=== PATIENT | male | born 1960 | race Caucasian/White ===

== ENCOUNTER 2016-07-14 07:54 | Emergency (ER) | payer SELFPAY ==
--- NOTE | ~2016-07-14 | ER ---
PATIENT'S NAME: BOWEN HAYNES [facility] AGE: 56 Y [address] ROOM: [place] [id number] LOCATION: ED ADMIT DATE: 07/14/2016 ER/Outpatient Report DISCHARGE DATE: 07/14/2016 FAMILY PHYSICIAN: Eliezer Sosa MD ATTENDING PHYSICIAN: Shaq Gamboa Time of arrival: 0754 hours. Time of evaluation: 0754 hours. CHIEF COMPLAINT: Chest pain. HISTORY OF PRESENT ILLNESS: The patient is a 56-year-old male, who presents for emergency department today with chief complaint of chest pain. Reports the left mid-upper chest it is a burning sensation that has been off and on for several months now. He reports no pain currently. Denies any nausea or vomiting. Does have some occasional shortness of breath. He was recently diagnosed with pneumonia. Denies any current diaphoresis. Denies any diarrhea or constipation. No fevers or chills. The patient reports that he just applied for jobs that does require lifting, so he has become concerned that he does not want to fall over from heart attack, if he notes to do lifting. PAST MEDICAL HISTORY: 1. Hypertension. 2. Seizures. 3. Depression. PAST SURGICAL HISTORY: Cervical tonsils and adenoids. SOCIAL HISTORY: The patient smokes a pack per day for 37 weeks. He is attempting to cut back alcohol. Reports social alcohol use. Denies any illicit drug use. ALLERGIES: NO KNOWN DRUG ALLERGIES. MEDICATIONS: Please see list. REVIEW OF SYSTEMS: All systems are reviewed by myself and are negative with the exception of those discussed in HPI and past medical history. PATIENT'S NAME: BOWEN HAYNES [facility] AGE: 56 Y [address] ROOM: [place], [place] [address] LOCATION: ED ADMIT DATE: 07/14/2016 ER/Outpatient Report DISCHARGE DATE: 07/14/2016 FAMILY PHYSICIAN: Eliezer Sosa MD ATTENDING PHYSICIAN: Shaq Gamboa PHYSICAL EXAMINATION: VITAL SIGNS: Weight 101.4 kg, blood pressure is 175/120, pulse 88, respiratory rate 16, temperature 98.5, oxygen saturation 98% on room air. GENERAL: The patient is a 56-year-old male, who appears stated age, in no acute distress. Well developed and well nourished. HEENT: Normocephalic and atraumatic. Pupils are equal, round, and reactive to light. NECK: Supple. There is no nuchal rigidity. CARDIOVASCULAR: Regular rate and rhythm. No murmurs, rubs, or gallops. LUNGS: Diminished diffusely and bilaterally. No wheezes, rales, or rhonchi. ABDOMEN: Soft, nontender, and nondistended. No rebound, rigidity, or guarding. MUSCULOSKELETAL: The patient moves all 4 extremities. SKIN: Warm and dry. There is no rashes or lesions noted. LABORATORY DATA AND X-RAYS: EKG is obtained that is interpreted by myself at 0812 hours. Shows sinus rhythm with a rate of 73 normal axis. Normal interval. No ST-elevation, ST- depression, T-wave inversion. CBC is unremarkable. CMP is unremarkable. Coags are normal. Alcohol is less than 0.01. Cardiac enzymes are normal. ProBNP is normal. D-dimer is normal. Chest x-ray shows no acute process. Repeat 2-hour cardiac enzymes are normal. Repeat 2-hour EKG at 0933 hours is interpreted by myself shows sinus rhythm with a rate of 68, normal axis, normal interval. No ST elevation, ST depression, T-wave inversions. There is no significant change from EKG dated 08/10/2014. IMPRESSION: 1. Chest pain, unclear etiology. 2. Tobacco abuse. 3. Initial visit. EMERGENCY DEPARTMENT COURSE: The patient brought back to the examination room. Seen and evaluated by myself. IV is established. Laboratory analysis and imaging are obtained described above. I have discussed results with the patient. The patient was given a liter of normal saline IV, 4 baby aspirin, 1 sublingual nitroglycerin, and a GI cocktail. I have discussed results of the laboratory analysis and imaging with the patient. Cardiac enzymes are negative. The patient's HEART score is 2, which does report a 2.5% risk of adverse cardiac event. I am recommending the patient to be discharged home with followup. I have discussed with the patient that I would recommend following up with Dr. Sosa's in 2 days for re-evaluation. I am discussing with Dr. Sosa potential for stress test and endoscopy. I have discussed return to care instructions including worsening chest pain, diaphoresis, or any other concerns to return to the emergency department as soon as possible. The PATIENT'S NAME: BOWEN HAYNES [facility] AGE: 56 Y [address] ROOM: [place] [id number] LOCATION: [facility] ADMIT DATE: 07/14/2016 ER/Outpatient Report DISCHARGE DATE: 07/14/2016 FAMILY PHYSICIAN: Eliezer Sosa MD ATTENDING PHYSICIAN: Shaq Gamboa patient is agreeable without further questions at this time. DISPOSITION: The patient is discharged home in good condition. DO ZAHRA ESCALANTE/joão /[id number] d: 07/14/16 1522 t: 07/19/16 0843, OUTPATIENT REPORT
[~2016-07-14 07:54] MED LIST: ASPIRIN325 MG PO; AVAPRO300 MG PO; CHANTIX1 EACH PO; COMBIVENT RESPIM4 GM INH; COREG12.5 M1 PO; DELTASONE10 MG PO; FOLIC ACID 40400 MCG PO; GUIATUSS AC (D480 ML PO; KEPPRA500 M1 PO; NORVASC5 MG PO; OXYGEN INH; PREDNISONE10 MG PO; PRILOSEC40 MG PO; TESSALON PERLE100 MG PO; TUMS REGULAR ST1 TAB PO; TYLENOL325 MG PO; ZITHROMAX250 MG PO; ZOCOR40 MG PO
[2016-07-14 08:25] LABS: BASOPHIL # 0.1 K/uL (0.0-0.2); BASOPHIL % 1.3 %; EOSINOPHIL # 0.1 K/uL (0.0-0.5); HEMATOCRIT 51.1 % (37.0-53.0); HEMOGLOBIN 17.6 g/dL (12.0-17.0); IMMATURE GRANULOCYTE % 0.1 %; LYMPHOCYTE # 2.3 K/uL (0.8-4.0); LYMPHOCYTE % 32.8 %; MCH 30.3 pg (27.0-34.0); MCHC 34.4 gm/dL (32.0-36.5); MCV 88.1 fl (83.0-98.0); MONOCYTE # 0.6 K/uL (0.0-1.0); MONOCYTE % 8.2 %; MPV 10.4 fl (9.4-12.4); NEUTROPHIL # (ANC) 3.8 K/uL (1.4-9.0); NEUTROPHIL % 55.6 %; NRBC % 0 /100WBC (0-0.00); PLATELET COUNT 209 K/uL (150-450); RDW-CV 12.6 % (11.9-14.6); WBC 6.9 K/uL (4.0-11.0)
[2016-07-14 08:38] LABS: INR - (THERAPEUTIC) 0.97 (0.92-1.07); PROTIME 10.2 SECONDS (9.8-11.4); PTT 26 SECONDS (25-32)
[2016-07-14 08:47] LABS: ALBUMIN 4.1 gm/dL (3.5-5.0); ALK PHOS 66 IU/L (33-138); ALT 23 IU/L (12-78); BLOOD UREA NITROGEN 16 mg/dL (6-24); CALCIUM 9.7 mg/dL (8.5-10.5); CHLORIDE 104 mMol/L (96-110); CO2 24 mMol/L (22-32); CPK 102 IU/L (35-332); CREATININE 0.8 mg/dL (0.6-1.3); ESTIMATED GFR (MDRD EQUATION) > 60; SODIUM 139 mMol/L (135-145); TOTAL BILIRUBIN 0.5 mg/dL (0.0-1.5); TOTAL PROTEIN 6.9 g/dL (6.0-8.4)
[2016-07-14 08:49] LABS: ANION GAP 15.1 (10.0-19.0); AST 21 IU/L (10-40); MAGNESIUM 2.3 mg/dL (1.8-2.6); POTASSIUM 4.1 mMol/L (3.7-5.1)
[2016-07-14 10:43] LABS: CPK 72 IU/L (35-332)
== END 2016-07-14 11:12 ==
LOC: GMED 07:54
PROVIDERS: Emergency Medicine
DX: R07.89 Other chest pain (principal); I10 Essential (primary) hypertension; F32.9 Major depressive disorder, single episode, unspecified; F17.210 Nicotine dependence, cigarettes, uncomplicated; Z79.82 Long term (current) use of aspirin; Z79.899 Other long term (current) drug therapy
CPT/HCPCS: G0480